=== PATIENT | male | born 1985 | race Native Hawaiian/Other Pacific Islander ===

== ENCOUNTER 2018-04-01 11:44 | Emergency (ER) | payer OTHER ==
[~2018-04-01] VITALS: Ht 172.7 cm; Wt 81.6 kg
[2018-04-01 11:42] VITALS: TEMP 99
[2018-04-01] MEDS ORDERED: NAPROSYN500 MG PO (12:57)
[2018-04-01 13:03] VITALS: BP 155/78
== END 2018-04-01 13:02 | disposition home or self-care (01) ==
LOC: ED 11:44
DX: M25.531 Pain in right wrist (principal); M25.511 Pain in right shoulder; V53.6XXA Passenger in pick-up truck or van injured in collision with car, pick-up truck or van in traffic accident, initial encounter
CPT/HCPCS: 99283

== ENCOUNTER 2018-04-22 15:15 | Outpatient (CLI) | payer OTHER ==
[~2018-04-22 15:15] MED LIST: NAPROSYN500 MG PO
== END 2018-04-22 23:18 | disposition home or self-care (01) ==
LOC: RAD 15:15
DX: M79.644 Pain in right finger(s) (principal)